=== PATIENT | male | born 1940 | race Two or more races ===

== ENCOUNTER 2017-04-12 19:28 | Emergency (ER) | payer MEDICARE, OTHER ==
[~2017-04-12] VITALS: Ht 167.6 cm; Wt 72.6 kg
[~2017-04-12 19:28] MED LIST: ATEN-60 PO; CHOL20009 PO; GABA-494 PO; GLIP-115 PO; LOSA100T27 PO; METF-370 PO; RANI150C11 PO; SIMV-13 PO
[2017-04-12 19:48] VITALS: BP 136/85
[2017-04-12 20:21] LABS: Urine Bilirubin Negative (Negative); Urine Blood 1+ /uL (Negative); Urine Color Yellow (Yellow); Urine Glucose Normal (Normal); Urine Ketone Negative (Negative); Urine Nitrite Negative (Negative); Urine RBC 2 /hpf (0 - 3); Urine Squamous Epithelial Cell FEW /hpf (<5); Urine pH 6.5 (5.0-8.0)
== END 2017-04-13 01:28 | disposition left against medical advice (07) ==
LOC: ER 19:43
DX: R31.9 Hematuria, unspecified (principal); Z53.21 Procedure and treatment not carried out due to patient leaving prior to being seen by health care provider
CPT/HCPCS: 81001